=== PATIENT | female | born 2000 | race Caucasian/White ===

== ENCOUNTER 2021-11-19 00:02 | Inpatient (IN) | payer BC ==
[~2021-11-19] VITALS: Ht 162.6 cm; Wt 106.6 kg
[2021-11-19] MEDS ORDERED: ADULT LOW DOSE81 MG PO (01:27)
[2021-11-19] MEDS ORDERED: PRENATAL MULTI1 EAC3 PO (01:27)
--- NOTE | 2021-11-19 08:42 | PR ---
[facility] [address] [facility] [place], [place] [address] Signed Progress Notes IP Datetime Report Generated by CPN: 11/19/2021 08:42 PROGRESS NOTES: [id number] Impression: Normal Progression of Labor Plan: Anesthesia Consult; Anticipate Vaginal Delivery VITAL SIGNS: [id number] Vital Signs: Reviewed; Within Normal Limits EXAM: [id number] Dilatation: 3.0 Effacement: 80 Station: -2 Contractions: not pickuup up well MEMBRANES: [id number] Membranes Status: Ruptured Comments: Patient getting more uncomfortable, desires Epidural. Anesthesia called. Will check cervix after comfortable with Epidural. FETUS A: [id number] FHR Baseline: 120 Variability: Moderate 6-25bpm Accelerations: 15X15 FETUS B: [id number] Signing Physician: Agus Galvan MD Copies: ~ *Electronically Signed* 11/19/21841 AGUS GALVAN MD PATIENT NAME: STUART ALMANZA PROGRESS NOTE DATE OF : 04/27/01 PHYSICIAN: AGUS GALVAN MD RPT #: [id number] REPORT IS CONFIDENTIAL AND NOT TO BE RELEASED WITHOUT AUTHORIZATION
--- NOTE | 2021-11-19 09:29 | PR ---
[facility] [address] [facility] [place], [place] [address] Signed Progress Notes IP Datetime Report Generated by CPN: 11/19/2021 09:29 PROGRESS NOTES: [id number] Impression: Normal Progression of Labor Plan: Continue Present Management; Anticipate Vaginal Delivery VITAL SIGNS: [id number] Vital Signs: Reviewed; Within Normal Limits EXAM: [id number] Dilatation: 4.0 Effacement: 50 Station: -3 Contractions: not pickuup up well MEMBRANES: [id number] Membranes Status: Ruptured Comments: Just received Epidural, getting more comfortable. Will continue monitoring. FETUS A: [id number] FHR Baseline: 120 Variability: Moderate 6-25bpm Accelerations: 15X15 FETUS B: [id number] Signing Physician: Agus Galvan MD Copies: ~ *Electronically Signed* 11/19/21928 AGUS GALVAN MD PATIENT NAME: STUART ALMANZA PROGRESS NOTE DATE OF : 00 PHYSICIAN: AGUS GALVAN MD RPT #: [id number] REPORT IS CONFIDENTIAL AND NOT TO BE RELEASED WITHOUT AUTHORIZATION
--- NOTE | 2021-11-19 09:30 | PR ---
[facility] [address] [facility] [place], [place] [address] Signed Progress Notes IP Datetime Report Generated by CPN: 11/19/2021 09:30 PROGRESS NOTES: [id number] Impression: Normal Progression of Labor Plan: Continue Present Management; Anticipate Vaginal Delivery VITAL SIGNS: [id number] Vital Signs: Reviewed; Within Normal Limits EXAM: G3585179 Dilatation: 4.0 Effacement: 50 Station: -3 Contractions: not pickuup up well MEMBRANES: [id number] Membranes Status: Ruptured Comments: Just received Epidural, getting more comfortable. Will continue monitoring. FETUS A: [id number] FHR Baseline: 120 Variability: Moderate 6-25bpm Accelerations: 15X15 FETUS B: [id number] Signing Physician: Agus Galvan MD Copies: ~ *Electronically Signed* 11/19/21929 AGUS GALVAN MD PATIENT NAME: STUART ALMANZA PROGRESS NOTE DATE OF : 00 PHYSICIAN: AGUS GALVAN MD RPT #: [id number] REPORT IS CONFIDENTIAL AND NOT TO BE RELEASED WITHOUT AUTHORIZATION
--- NOTE | 2021-11-19 13:03 | PR ---
[facility] [address] [facility] [place], [place] [address] Signed Progress Notes IP Datetime Report Generated by CPN: 11/19/2021 13:03 PROGRESS NOTES: [id number] Impression: Normal Progression of Labor Procedures: Intrauterine Pressure Catheter; Scalp Electrode Plan: Augmentation; Anticipate Vaginal Delivery VITAL SIGNS: Z2552058 Vital Signs: Reviewed; Within Normal Limits EXAM: Z7465671 Dilatation: 4.0 Effacement: 70 Station: -3 Contractions: not pickuup up well MEMBRANES: U3779405 Membranes Status: Ruptured Comments: Having some trouble getting comfortable with Epidural; Aneshtesia here. Started on Pitocin, now having better contractions FETUS A: [id number] FHR Baseline: 120 Variability: Moderate 6-25bpm Accelerations: 15X15 FETUS B: [id number] Signing Physician: Agus Galvan MD Copies: ~ *Electronically Signed* 11/19/21 1303 AGUS GALVAN MD PATIENT NAME: STUART ALMANZA PROGRESS NOTE DATE OF : 00 PHYSICIAN: AGUS GALVAN MD RPT #: [id number] REPORT IS CONFIDENTIAL AND NOT TO BE RELEASED WITHOUT AUTHORIZATION
--- NOTE | 2021-11-19 13:04 | PR ---
[facility] [address] [facility] [place], [place] [address] Signed Progress Notes IP Datetime Report Generated by CPN: 11/19/2021 13:04 PROGRESS NOTES: [id number] Impression: Normal Progression of Labor Procedures: Intrauterine Pressure Catheter; Scalp Electrode Plan: Augmentation; Anticipate Vaginal Delivery VITAL SIGNS: [id number] Vital Signs: Reviewed; Within Normal Limits EXAM: W8603481 Dilatation: 5.0 Effacement: 75 Station: -2 Contractions: not pickuup up well MEMBRANES: B8445649 Membranes Status: Ruptured Comments: Having some trouble getting comfortable with Epidural; Aneshtesia here. Started on Pitocin, now having better contractions FETUS A: [id number] FHR Baseline: 120 Variability: Moderate 6-25bpm Accelerations: 15X15 FETUS B: [id number] Signing Physician: Agus Galvan MD Copies: ~ *Electronically Signed* 11/19/21 1304 AGUS GALVAN MD PATIENT NAME: STUART ALMANZA PROGRESS NOTE DATE OF : 00 PHYSICIAN: AGUS GALVAN MD RPT #: [id number] REPORT IS CONFIDENTIAL AND NOT TO BE RELEASED WITHOUT AUTHORIZATION
--- NOTE | 2021-11-19 18:20 | PR ---
[facility] [address] [facility] [place], [place] [address] Signed Progress Notes IP Datetime Report Generated by CPN: 11/19/2021 18:20 PROGRESS NOTES: [id number] Impression: Normal Progression of Labor Procedures: Intrauterine Pressure Catheter; Scalp Electrode Plan: Continue Present Management; Anticipate Vaginal Delivery VITAL SIGNS: A2570732 Vital Signs: Reviewed; Within Normal Limits EXAM: T0599667 Dilatation: 5.0 Effacement: 90 Station: -2 Contractions: not pickuup up well MEMBRANES: Y6011653 Membranes Status: Ruptured Comments: Now comfortable after Epidural replacement; able to try different positions, since stalled @ 5 cm for several hours, which now seems to have helped. Will continue monitoring, continue with Pitocin augmentation. FETUS A: [id number] FHR Baseline: 120 Variability: Moderate 6-25bpm Accelerations: 15X15 FETUS B: [id number] Signing Physician: Agus Galvan MD Copies: ~ *Electronically Signed* 11/19/21 1820 AGUS GALVAN MD PATIENT NAME: STUART ALMANZA FAINA PROGRESS NOTE DATE OF : 00 PHYSICIAN: AGUS GALVAN MD RPT #: [id number] REPORT IS CONFIDENTIAL AND NOT TO BE RELEASED WITHOUT AUTHORIZATION
--- NOTE | 2021-11-19 19:47 | PR ---
[facility] [address] [facility] [place], [place] [address] Signed Progress Notes IP Datetime Report Generated by CPN: 11/19/2021 19:47 PROGRESS NOTES: P8200003 Impression: Normal Progression of Labor Procedures: Intrauterine Pressure Catheter; Scalp Electrode Plan: Continue Present Management VITAL SIGNS: Y2452265 Vital Signs: Reviewed; Within Normal Limits EXAM: K7174157 Dilatation: 9.0 Effacement: 90 Station: 0 Contractions: not pickuup up well MEMBRANES: B8064700 Membranes Status: Ruptured Comments: Comfortable with Epidural. Making some progress now, but also some caput. Will continue monitoring, try increasing Pitocin since contractions close, but not very strong. FETUS A: [id number] FHR Baseline: 120 Variability: Moderate 6-25bpm Accelerations: 15X15 FETUS B: [id number] Signing Physician: Agus Galvan MD Copies: ~ *Electronically Signed* 11/19/211946 AGUS GALVAN MD PATIENT NAME: STUART ALMANZA PROGRESS NOTE DATE OF : 00 PHYSICIAN: AGUS GALVAN MD [facility] #: [id number] REPORT IS CONFIDENTIAL AND NOT TO BE RELEASED WITHOUT AUTHORIZATION
--- NOTE | 2021-11-19 21:39 | PR ---
[facility] [address] [facility] [place], [place] [address] Signed Progress Notes IP Datetime Report Generated by CPN: 11/19/2021 21:39 PROGRESS NOTES: [id number] Impression: Normal Progression of Labor Procedures: Intrauterine Pressure Catheter; Scalp Electrode Plan: Continue Present Management VITAL SIGNS: [id number] Vital Signs: Reviewed; Within Normal Limits EXAM: R3625653 Dilatation: 10.0 Effacement: 90 Station: 0 Contractions: not pickuup up well MEMBRANES: I0099532 Membranes Status: Ruptured Comments: Comfortable with Epidural; will have patient start pushing. FETUS A: [id number] FHR Baseline: 120 Variability: Moderate 6-25bpm Accelerations: 15X15 FETUS B: [id number] Signing Physician: Agus Galvan MD Copies: ~ *Electronically Signed* 11/19/212138 AGUS GALVAN MD PATIENT NAME: STUART ALMANZA PROGRESS NOTE DATE OF : 00 PHYSICIAN: AGUS GALVAN MD RPT #: [id number] REPORT IS CONFIDENTIAL AND NOT TO BE RELEASED WITHOUT AUTHORIZATION
--- NOTE | 2021-11-19 22:20 | PR ---
[facility] [address] [facility] [place], [place] [address] Signed Progress Notes IP Datetime Report Generated by CPN: 11/19/2021 22:20 PROGRESS NOTES: [id number] Impression: Normal Progression of Labor Procedures: Intrauterine Pressure Catheter; Scalp Electrode Plan: Continue Present Management; Anticipate Vaginal Delivery VITAL SIGNS: [id number] Vital Signs: Reviewed; Within Normal Limits EXAM: M2890378 Dilatation: 10.0 Effacement: 90 Station: 0 Contractions: not pickuup up well MEMBRANES: K9792565 Membranes Status: Ruptured Comments: Pushing well, EPidural working well. Continue pushing. FETUS A: [id number] FHR Baseline: 120 Variability: Moderate 6-25bpm Accelerations: 15X15 FETUS B: [id number] Signing Physician: Agus Galvan MD Copies: ~ *Electronically Signed* 11/19/212219 AGUS GALVAN MD PATIENT NAME: STUART ALMANZA PROGRESS NOTE DATE OF : 00 PHYSICIAN: AGUS GALVAN MD RPT #: [id number] REPORT IS CONFIDENTIAL AND NOT TO BE RELEASED WITHOUT AUTHORIZATION
--- NOTE | 2021-11-19 23:07 | PR ---
[facility] [address] [facility] [place], [place] [address] Signed Progress Notes IP Datetime Report Generated by CPN: 11/19/2021 23:07 PROGRESS NOTES: [id number] Impression: Normal Progression of Labor Procedures: Intrauterine Pressure Catheter; Scalp Electrode Plan: Continue Present Management VITAL SIGNS: [id number] Vital Signs: Reviewed; Within Normal Limits EXAM: E7416245 Dilatation: 10.0 Effacement: 90 Station: 0 Contractions: not pickuup up well MEMBRANES: B8062537 Membranes Status: Ruptured Comments: Pushing well, fetus seems to be turning, now able to feel sutures, appears to be GIOVANNY. Continue pushing FETUS A: [id number] FHR Baseline: 120 Variability: Moderate 6-25bpm Accelerations: 15X15 FETUS B: [id number] Signing Physician: Collins Galvan MD Copies: ~ *Electronically Signed* 11/19/21 3695 COLLINS GALVAN MD PATIENT NAME: STUART ALMANZA PROGRESS NOTE DATE OF : 00 PHYSICIAN: COLLINS GALVAN MD RPT #: [id number] REPORT IS CONFIDENTIAL AND NOT TO BE RELEASED WITHOUT AUTHORIZATION
--- NOTE | 2021-11-19 23:39 | PR ---
[facility] [address] [facility] [place], [place] [address] Signed Progress Notes IP Datetime Report Generated by CPN: 11/19/2021 23:39 PROGRESS NOTES: [id number] Impression: Normal Progression of Labor Procedures: Intrauterine Pressure Catheter; Scalp Electrode Plan: Continue Present Management; Anticipate Vaginal Delivery VITAL SIGNS: [id number] Vital Signs: Reviewed; Within Normal Limits EXAM: G2046764 Dilatation: 10.0 Effacement: 90 Station: 0 Contractions: not pickuup up well MEMBRANES: S8691148 Membranes Status: Ruptured Comments: Pushing well, with slow but steady progress. Encouraged to continue pushing. FETUS A: [id number] FHR Baseline: 120 Variability: Moderate 6-25bpm Accelerations: 15X15 FETUS B: [id number] Signing Physician: Agus Galvan MD Copies: ~ *Electronically Signed* 11/19/21 0890 AGUS GALVAN MD PATIENT NAME: STUART ALMANZA PROGRESS NOTE DATE OF : 00 PHYSICIAN: AGUS GALVAN MD RPT #: [id number] REPORT IS CONFIDENTIAL AND NOT TO BE RELEASED WITHOUT AUTHORIZATION
--- NOTE | 2021-11-19 23:40 | PR ---
[facility] [address] [facility] [place], [place] [address] Signed Progress Notes IP Datetime Report Generated by CPN: 11/19/2021 23:40 PROGRESS NOTES: [id number] Impression: Normal Progression of Labor Procedures: Intrauterine Pressure Catheter; Scalp Electrode Plan: Continue Present Management; Anticipate Vaginal Delivery VITAL SIGNS: Y9505115 Vital Signs: Reviewed; Within Normal Limits EXAM: Y9313209 Dilatation: 10.0 Effacement: 90 Station: 0 Contractions: not pickuup up well MEMBRANES: N9370584 Membranes Status: Ruptured Comments: Pushing well, with slow but steady progress. Encouraged to continue pushing. FETUS A: [id number] FHR Baseline: 120 Variability: Moderate 6-25bpm Accelerations: 15X15 FETUS B: [id number] Signing Physician: Agus Galvan MD Copies: ~ *Electronically Signed* 11/19/21 0030 AGUS GALVAN MD PATIENT NAME: STUART ALMANZA PROGRESS NOTE DATE OF : 00 PHYSICIAN: AGUS GALVAN MD RPT #: [id number] REPORT IS CONFIDENTIAL AND NOT TO BE RELEASED WITHOUT AUTHORIZATION
--- NOTE | 2021-11-20 09:28 | PR ---
[facility] [address] [place] [address] Signed PP Progress Notes Datetime Report Generated by CPN: 11/20/2021 09:28 SUBJECTIVE: [id number] Pain: Within Normal Limits Nausea/Vomiting: Denies Vital Signs: [id number] Vital Signs: Reviewed; Within Normal Limits Notable Details: Hgb/HCt = 9.9/31.0 Abdomen/Uterus: Normal Lochia: Normal Extremities: Normal IMPRESSION/PLAN/PROCEDURES: L6021037 Impression: Normal Progression Plan: Continue Present Management Procedures: None Progress Notes: Doing well, without complaint, minimnal bleeding since excessive bleeding immediately after delivery. Signing Physician: Agus Galvan MD Copies: ~ *Electronically Signed* 11/20/21927 AGUS GALVAN MD PATIENT NAME: STUART ALMANZA PROGRESS NOTE DATE OF : 00 PHYSICIAN: AGUS GALVAN MD RPT #: [id number] REPORT IS CONFIDENTIAL AND NOT TO BE RELEASED WITHOUT AUTHORIZATION
--- NOTE | 2021-11-21 08:29 | PR ---
[facility] [address] [facility] [place] [address] Signed PP Progress Notes Datetime Report Generated by CPN: 11/21/2021 08:29 SUBJECTIVE: [id number] Pain: Within Normal Limits Nausea/Vomiting: Denies Vital Signs: T3921117 Vital Signs: Reviewed Notable Details: Repeat Hgb/Hct = 7.8/24.6 EXAM: Ongoing Abdomen/Uterus: Normal Lochia: Normal Extremities: Normal IMPRESSION/PLAN/PROCEDURES: [id number] Impression: Normal Progression Other Impression: PP Anemia Plan: Discharge Procedures: None Progress Notes: Doing well, without complaint, ready to go home. Signing Physician: Agus Galvan MD Copies: ~ *Electronically Signed* 11/21/21 0829 AGUS GALVAN MD PATIENT NAME: STUART ALMANZA PROGRESS NOTE DATE OF : 00 PHYSICIAN: AGUS GALVAN MD RPT #: [id number] REPORT IS CONFIDENTIAL AND NOT TO BE RELEASED WITHOUT AUTHORIZATION
== END 2021-11-21 14:10 | disposition home or self-care (01) | DRG 768 ==
LOC: FBC 00:02
PROVIDERS: ADMIT General Practice; ATTEND General Practice
PROC: 10E0XZZ Delivery of Products of Conception, External Approach (ICD-10-PCS; principal; 2021-11-19)
PROC: 10907ZC Drainage of Amniotic Fluid, Therapeutic from Products of Conception, Via Natural or Artificial Opening (ICD-10-PCS; 2021-11-19)
PROC: 00HU33Z Insertion of Infusion Device into Spinal Canal, Percutaneous Approach (ICD-10-PCS; 2021-11-19)
PROC: 3E0R3BZ Introduction of Anesthetic Agent into Spinal Canal, Percutaneous Approach (ICD-10-PCS; 2021-11-19)
PROC: 0DQR0ZZ Repair Anal Sphincter, Open Approach (ICD-10-PCS; 2021-11-19)
PROC: 3E0P7VZ Introduction of Hormone into Female Reproductive, Via Natural or Artificial Opening (ICD-10-PCS; 2021-11-19)
DX: O48.0 Post-term pregnancy (principal); Z37.0 Single live birth; O70.20 Third degree perineal laceration during delivery, unspecified; O72.1 Other immediate postpartum hemorrhage; O99.03 Anemia complicating the puerperium; Z20.822 Contact with and (suspected) exposure to COVID-19; Z3A.40 40 weeks gestation of pregnancy; Z67.10 Type A blood, Rh positive
CPT/HCPCS: 36415; 85027; 86850; 86900; 86901; 87502; A9270; J2001; J2210; J2405; J2590; J2795; J3010; J7121; U0003

== ENCOUNTER 2023-05-21 05:48 | Inpatient (IN) | payer BC ==
[~2023-05-21 05:48] MED LIST: ADULT LOW DOSE81 MG PO; PRENATAL MULTI1 EAC3 PO
[2023-05-21 07:14] VITALS: BP 137/78
[2023-05-21 07:31] LABS: HEMATOCRIT 39.2 % (35.0-50.0); HEMOGLOBIN 12.7 g/dL (12.0-18.0); MCH 27.4 (27-36); MCHC 32.4 g/dl (30-36); MCV 84.6 fl (81-99); RBC 4.64 M/ul (4.3-5.7); RDW 15.4 (10.5-15.0)
[2023-05-21 08:06] LABS: ABO A; RH POSITIVE
[2023-05-21 08:07] LABS: ANTIBODY SCREEN NEGATIVE
[2023-05-21 09:18] LABS: AMPHETAMINES, URINE NEGATIVE (NEGATIVE); BARBITURATES, URINE NEGATIVE (NEGATIVE); BENZODIAZEPINE, URINE NEGATIVE (NEGATIVE); BUPRENORPHINE, URINE NEGATIVE (NEGATIVE); CANNABINOID, URINE NEGATIVE (NEGATIVE); COCAINE, URINE NEGATIVE (NEGATIVE); ECSTASY, URINE NEGATIVE (NEGATIVE); FENTANYL, URINE NEGATIVE (NEGATIVE); METHADONE, URINE NEGATIVE (NEGATIVE); OPIATES, URINE NEGATIVE (NEGATIVE); OXYCODONE, URINE NEGATIVE (NEGATIVE); PHENCYCLIDINE, URINE NEGATIVE (NEGATIVE)
--- NOTE | 2023-05-21 14:20 | PR ---
[facility] [address] [place], [place] [address] Signed Progress Notes IP Datetime Report Generated by CPN: 05/21/2023 14:19 PROGRESS NOTES: [id number] Impression: Normal Progression of Labor; Reassuring Heart Rate Plan: Continue Present Management; Anesthesia Consult Informed Consent Obtain: Vaginal Delivery VITAL SIGNS: F2086011 EXAM: [id number] Effacement: 70 Station: -2 Contractions: q 2-4 min MEMBRANES: [id number] Comments: Pt seen and examined. Doing well but very uncomfortable despite epidural. Anesthesia notified and returning to evaluate. Continue expectant management. Cx exam per RN FETUS A: [id number] FHR Baseline: 140 Variability: Moderate 6-25bpm Accelerations: 15X15 Decelerations: None FHR Category: Category I Presentation: Vertex Comments on Fetus A: No evidence of metabolic acidosis FETUS B: [id number] Signing Physician: Lizbeth Keita DO Copies: ~ *Electronically Signed* 05/21/23 1419 LIZBETH KEITA ([place]) DO PATIENT NAME: BECKY TAYLORElvira EISENBERG PROGRESS NOTE DATE OF : 00 PHYSICIAN: LIZBETH KEITA) DO RPT #: [id number] REPORT IS CONFIDENTIAL AND NOT TO BE RELEASED WITHOUT AUTHORIZATION
--- NOTE | 2023-05-21 17:57 | PR ---
[facility] [address] [place], [place] [address] Signed Progress Notes IP Datetime Report Generated by CPN: 05/21/2023 17:57 PROGRESS NOTES: [id number] Impression: Normal Progression of Labor; Reassuring Heart Rate Procedures: Intrauterine Pressure Catheter; Sterile Vag Exam Plan: Continue Present Management; Augmentation Other Plans: Continue augmentation per protocol Informed Consent Obtain: Vaginal Delivery VITAL SIGNS: [id number] EXAM: [id number] Dilatation: 7.0 Effacement: 70 Station: -2 Contractions: q 2-5 minutes MEMBRANES: [id number] Comments: Pt seen and examined. Doing well. Uncomfortable w/ epidural and anesthesia back to evaluate patient. Reviewed progress of labor and contractions. Recommended IUPC. IUPC placed w/out difficulty after reviewing risks/benefits. All questions answered. Will continue augmentation per protocol and anticipate FETUS A: [id number] FHR Baseline: 140 Variability: Moderate 6-25bpm Accelerations: 15X15 Decelerations: None FHR Category: Category I Presentation: Vertex Comments on Fetus A: No evidence of metabolic acidosis FETUS B: [id number] Signing Physician: Lizbeth Keita DO Copies: ~ *Electronically Signed* 05/21/23 9011 LIZBETH KEITA ([place]ESLEY) DO PATIENT NAME: STUART TAYLOR PROGRESS NOTE DATE OF : 00 PHYSICIAN: LIZBETH KEITA (JD) DO RPT #: [id number] REPORT IS CONFIDENTIAL AND NOT TO BE RELEASED WITHOUT AUTHORIZATION
--- NOTE | 2023-05-21 21:55 | PR ---
[facility] [address] [place], [place] [address] Signed Progress Notes IP Datetime Report Generated by CPN: 05/21/2023 21:54 PROGRESS NOTES: [id number] Impression: Normal Progression of Labor; Reassuring Heart Rate Procedures: Sterile Vag Exam Plan: Continue Present Management; Anticipate Vaginal Delivery Other Plans: Continue augmentation per protocol Informed Consent Obtain: Vaginal Delivery VITAL SIGNS: [id number] EXAM: [id number] Dilatation: 9.5 Effacement: 80 Station: -2 Contractions: q 2-3 min MEMBRANES: Q2620661 Comments: Pt seen and examined. Very uncomfortable w/ contractions. Cat 1 tracing Anterior lip (reducable) noted. Anesthesia at bedside and epidural bolus given. Will attempt to get pt more comfortable and will push when complete. FETUS A: [id number] FHR Baseline: 140 Variability: Moderate 6-25bpm Accelerations: 15X15 Decelerations: None FHR Category: Category I Presentation: Vertex Comments on Fetus A: No evidence of metabolic acidosis FETUS B: [id number] Signing Physician: Lizbeth Keita DO Copies: ~ *Electronically Signed* 05/21/23 8990 LIZBETH KEITA (WESLEY) DO PATIENT NAME: STUART TAYLOR PROGRESS NOTE DATE OF : 00 PHYSICIAN: LIZBETH KEITA (JD) DO RPT #: [id number] REPORT IS CONFIDENTIAL AND NOT TO BE RELEASED WITHOUT AUTHORIZATION
--- NOTE | 2023-05-22 00:17 | PR ---
[facility] [address] [place], [place] [address] Signed Progress Notes IP Datetime Report Generated by CPN: 05/22/2023 00:17 PROGRESS NOTES: I8074501 Impression: Reassuring Heart Rate Procedures: Sterile Vag Exam Plan: Deliver- Section Other Plans: Continue augmentation per protocol Informed Consent Obtain: Section Delivery; Risks, Benefits and Alternatives Discussed Other Informed Consents: C/S by maternal request VITAL SIGNS: U0967986 EXAM: [id number] Dilatation: 10.0 Effacement: 100 Station: 1 Contractions: q 1-2 minutes MEMBRANES: [id number] Comments: At pt's bedside pushing with contractions. Pt w/ minimal descent w/ contractions and pushing efforts. Pt reports 9/10 pain stating "I have had no relief for that past 6 hrs, this isnt working, and I want an C/S right now." Reviewed anticipate w/ continued pushing efforts, risks/benefits of vs vaginal delivery, and pt feels confident in her decision for by maternal request. All questions from her and her answered to the best of my ability. Consents signed. Ancef 3g IV, azithromycin 500mg IV ordered. FETUS A: [id number] FHR Baseline: 140 Variability: Moderate 6-25bpm Accelerations: 15X15 Decelerations: None FHR Category: Category I Presentation: Vertex Comments on Fetus A: No evidence of metabolic acidosis FETUS B: [id number] Signing Physician: Lizbeth Keita, DO *Electronically Signed* 05/22/23 0017 LIZBETH KEITA) DO PATIENT NAME: CLAUDIASTUART FAINA PROGRESS NOTE DATE OF : 00 PHYSICIAN: LIZBETH KEITA) DO RPT #: [id number] REPORT IS CONFIDENTIAL AND NOT TO BE RELEASED WITHOUT AUTHORIZATION
--- NOTE | 2023-05-22 02:32 | NUR ---
05/22/23 0232 Evi Vasquez 0222- PT ARRIVES TO PACU NONAROUSABLE TO STIMULI WITH AN OPA IN PLACE. RESP EVEN AND UNLABORED. OXYGEN SAT 100% ON 6L VIA MASK. MINIMAL BLEEDING NOTED TO THE PERIPAD. FUNDUS FIRM. 20G IV TO THE RIGHT FOREARM INFUSING LR WITH PITOCIN. NO REDNESS OR SWELLING NOTED. 226- DR. ALEXANDRE AT THE BEDSIDE TO CHECK ON PT'S BLEEDING. PT HAS MINIMAL BLEEDING.
[2023-05-22 02:52] VITALS: BP 132/80
[2023-05-22 05:27] LABS: HEMATOCRIT 31.8 % (35.0-50.0); HEMOGLOBIN 10.5 g/dL (12.0-18.0); MCHC 33.1 g/dl (30-36); MCV 84.6 fl (81-99); RBC 3.76 M/ul (4.3-5.7); RDW 14.8 (10.5-15.0)
--- NOTE | 2023-05-22 16:56 | PR ---
[facility] [address] [facility] [place], [place] [address] Signed PP Progress Notes Datetime Report Generated by CPN: 05/22/2023 16:56 SUBJECTIVE: [id number] Pain: Within Normal Limits Flatus: Yes Bowel Movement: No Vital Signs: J1662302 Vital Signs: Reviewed; Within Normal Limits EXAM: Ongoing Cardiovascular: Normal Respiratory: Normal Abdomen/Uterus: Normal Lochia: Normal CVA Tenderness: Normal Extremities: Normal Incision: Normal Progress: Normal Exam Comments: Fundus firm U-2 nontender IMPRESSION/PLAN/PROCEDURES: [id number] Impression: Normal Progression Plan: Continue Present Management Progress Notes: Late note from 9am. Pt doing well. Moore in place and pt has not ambulated. Tolerating full diet. Pain and lochia minimal. . No concerns. Continue routine care. Signing Physician: Lizbeth Keita DO Copies: ~ *Electronically Signed* 05/22/23 1656 LIZBETH KEITA ([place]) DO PATIENT NAME: STUART TAYLOR PROGRESS NOTE DATE OF : 00 PHYSICIAN: LIZBETH KEITA ([place]) DO RPT #: [id number] REPORT IS CONFIDENTIAL AND NOT TO BE RELEASED WITHOUT AUTHORIZATION
--- NOTE | 2023-05-23 11:05 | PR ---
[facility] [address] [facility] [place], [place] [address] Signed PP Progress Notes Datetime Report Generated by CPN: 05/23/2023 11:05 SUBJECTIVE: [id number] Pain: Within Normal Limits Nausea/Vomiting: Denies Flatus: Yes Bowel Movement: No Vital Signs: X0870472 Vital Signs: Reviewed; Within Normal Limits EXAM: Ongoing Cardiovascular: Normal Respiratory: Normal Abdomen/Uterus: Normal Lochia: Normal Vulva/Perineum: Not Done Breasts: Not Done CVA Tenderness: Normal Extremities: Normal Incision: Normal Progress: Normal Exam Comments: Fundus firm U -2 nontender. Incision healing well. IMPRESSION/PLAN/PROCEDURES: [id number] Impression: Normal Progression Plan: Continue Present Management Progress Notes: Pt seen and examined. Doing well. Ambulating, voiding, and tolerating full diet. Pain intermittently high but controlled. No fevers/chills or other concerns. Blood glucose controlled w/ current settings. Appreciate María Mccray's input. Anticipate d/c home tomorrow. Signing Physician: Lizbeth Keita DO Copies: ~ *Electronically Signed* 05/23/23 1487 LIZBETH KEITA ([place]) DO PATIENT NAME: STUART TAYLOR PROGRESS NOTE DATE OF : 00 PHYSICIAN: LIZBETH KEITA (JD) DO RPT #: [id number] REPORT IS CONFIDENTIAL AND NOT TO BE RELEASED WITHOUT AUTHORIZATION
--- NOTE | 2023-05-23 11:07 | PR ---
[facility] [place] [facility] [address] [facility] [place], [place] [address] Signed PP Progress Notes Datetime Report Generated by CPN: 05/23/2023 11:07 SUBJECTIVE: [id number] Pain: Within Normal Limits Nausea/Vomiting: Denies Flatus: Yes Bowel Movement: No Vital Signs: [id number] Vital Signs: Reviewed; Within Normal Limits EXAM: Ongoing Cardiovascular: Normal Respiratory: Normal Abdomen/Uterus: Normal Lochia: Normal Vulva/Perineum: Not Done Breasts: Not Done CVA Tenderness: Normal Extremities: Normal Incision: Normal Progress: Normal Exam Comments: Fundus firm U -2 nontender. Incision healing well. IMPRESSION/PLAN/PROCEDURES: [id number] Impression: Normal Progression Plan: Continue Present Management Progress Notes: Addendum to prior noted. Pt not diabetic and glucose control not of a concern. Remainder of note correct. Signing Physician: Lizbeth Keita DO Copies: ~ *Electronically Signed* 05/23/23 6248 LIZBETH KEITA ([place]) DO PATIENT NAME: STUART TAYLOR PROGRESS NOTE DATE OF : 00 PHYSICIAN: LIZBETH KEITA ([place]) DO RPT #: [id number] REPORT IS CONFIDENTIAL AND NOT TO BE RELEASED WITHOUT AUTHORIZATION
--- NOTE | 2023-05-24 09:47 | PR ---
[facility] [address] [facility] [address] [facility] [place], [place] [address] Signed PP Progress Notes Datetime Report Generated by CPN: 05/24/2023 09:46 SUBJECTIVE: [id number] Pain: Within Normal Limits Nausea/Vomiting: Denies Flatus: Yes Bowel Movement: No Vital Signs: [id number] Vital Signs: Reviewed; Within Normal Limits EXAM: Ongoing Cardiovascular: Normal Respiratory: Normal Abdomen/Uterus: Abnormal Lochia: Normal Vulva/Perineum: Not Done Breasts: Not Done CVA Tenderness: Not Done Extremities: Normal Incision: Normal Progress: Abnormal Exam Comments: Abdomen with active BS. Fundus firm, NT @ U-1. H/H 10.5/31.8, WBC 19.9, plat 230k IMPRESSION/PLAN/PROCEDURES: [id number] Impression: Normal Progression Plan: Discharge Procedures: None Progress Notes: Doing well. She is ready for D/C. Signing Physician: Lisbet Thomas MD Copies: ~ *Electronically Signed* 05/24/23 0946 LISBET THOMAS MD PATIENT NAME: STUART TAYLOR FAINA PROGRESS NOTE DATE OF : 00 PHYSICIAN: LISBET THOMAS MD RPT #: [id number] REPORT IS CONFIDENTIAL AND NOT TO BE RELEASED WITHOUT AUTHORIZATION
== END 2023-05-24 10:50 | disposition home or self-care (01) | DRG 788 ==
LOC: FBC 05:48
PROVIDERS: ADMIT Obstetrics & Gynecology; ATTEND Obstetrics & Gynecology
PROC: 4A033R1 Measurement of Arterial Saturation, Peripheral, Percutaneous Approach (ICD-10-PCS; 2023-05-21)
PROC: 10D00Z1 Extraction of Products of Conception, Low, Open Approach (ICD-10-PCS; principal; 2023-05-22 00:30)
DX: O48.0 Post-term pregnancy (principal); O32.4XX0 Maternal care for high head at term, not applicable or unspecified; Z3A.40 40 weeks gestation of pregnancy; Z37.0 Single live birth; O76 Abnormality in fetal heart rate and rhythm complicating labor and delivery
CPT/HCPCS: 01961; 36415; 76942; 80307; 82803; 85027; 86850; 86900; 86901; A9270; J0131; J0330; J0456; J0690; J1100; J1650; J1885; J2001; J2274; J2371; J2405; J2590; J2704; J2795; J3010; J7121